=== PATIENT | male | born 1995 | race Caucasian/White ===

== ENCOUNTER 2025-01-06 15:16 | Emergency (ER) | payer BC ==
[~2025-01-06] VITALS: Ht 177.8 cm; Wt 79.0 kg
[2025-01-06] MEDS: FAMOTIDINE 20 MG/2 ML VIAL IVP ONE (21:02)
[2025-01-06] MEDS: diphenhydrAMINE 50 MG/ML VIAL IV ONE (21:02)
[2025-01-06] MEDS ORDERED: CETI10CA2 PO (22:28)
[2025-01-06] MEDS ORDERED: PEPC1TAB5 PO (22:28)
[2025-01-06 22:52] VITALS: BP 124/72; TEMP 98.5; O2SAT 97
== END 2025-01-06 22:53 | disposition home or self-care (01) ==
LOC: M ED 15:16
DX: L50.1 Idiopathic urticaria (principal); F41.9 Anxiety disorder, unspecified; Z86.19 Personal history of other infectious and parasitic diseases; Z88.0 Allergy status to penicillin; Z91.030 Bee allergy status
CPT/HCPCS: 96374; 96375; 99284; J1200; J1308